=== PATIENT | male | born 1950 | race Two or more races ===

== ENCOUNTER 2019-09-07 08:39 | Inpatient (IN) | payer OTHER, MEDICARE ==
[2019-09-07] MEDS ORDERED: LORazepam Inj 2mg/ml 1ml IVP PRN (10:00)
[2019-09-07] MEDS: D5 1/2NS w/KCl 20mEq 1,000 ML IV SCH (12:00)
[2019-09-07] MEDS: Pantoprazole Inj IVP SCH (22:30)
[2019-09-08] MEDS: D5 1/2NS w/KCl 20mEq 1,000 ML IV SCH (03:10)
[2019-09-08] MEDS ORDERED: fentaNYL 100 mcg/2 mL IV PRN ×2 (07:45→12:25)
[2019-09-08] MEDS ORDERED: Atropine Inj 1mg/10ml Syr IV PRN (07:45)
[2019-09-08] MEDS ORDERED: DiphenhydrAMINE 50mg/ml Inj IVP PRN ×2 (07:45→12:30)
[2019-09-08] MEDS ORDERED: Midazolam 2mg/2ml Inj IVP PRN (07:45)
[2019-09-08] MEDS ORDERED: LR 1000ml ONE (08:00)
[2019-09-08] MEDS ORDERED: Lidocaine 1% MPF 10mg/ml 5ml ONE ×2 (08:00→09:00)
[2019-09-08] MEDS: Thiamine 100mg tab ORAL SCH (09:00)
[2019-09-08] MEDS: Pantoprazole Inj IVP SCH ×2 (09:15→20:30)
[2019-09-08] MEDS ORDERED: NS 500ML IVPB ONE (09:35)
[2019-09-08] MEDS ORDERED: HYDROcodone/Acetamin 5/325 tab ORAL PRN (14:15)
[2019-09-08] MEDS: LORazepam 0.5mg tab ORAL PRN ×2 (14:17→20:41)
[2019-09-09] MEDS: Pantoprazole Inj IVP SCH (09:15)
[2019-09-09] MEDS: Thiamine 100mg tab ORAL SCH (09:15)
[2019-09-09] MEDS ORDERED: VITAMIN B-1100 M2 ORAL (13:46)
[2019-09-09] MEDS ORDERED: PANTOPRAZOLE SO40 MG ORAL (13:46)
[2019-09-09] MEDS ORDERED: FOLIC ACID1 MG ORAL (13:46)
== END 2019-09-09 16:47 | disposition home or self-care (01) | DRG 811 ==
DX: D62 Acute posthemorrhagic anemia (principal); I85.11 Secondary esophageal varices with bleeding; K29.71 Gastritis, unspecified, with bleeding; K76.6 Portal hypertension; K70.30 Alcoholic cirrhosis of liver without ascites; D69.6 Thrombocytopenia, unspecified; F10.20 Alcohol dependence, uncomplicated; F10.21 Alcohol dependence, in remission